=== PATIENT | male | born 1950 | race Caucasian/White ===

== ENCOUNTER → 2024-04-11 14:34 | Outpatient (CLI) | payer MEDICARE, SELFPAY ==
--- NOTE | 2024-04-11 14:36 | DI.RAD.S_ITS ---
PROCEDURE: XR KNEE RT 3V INDICATIONS: rt knee pain TECHNIQUE: 3 views of the knee were acquired. COMPARISON: None. FINDINGS: Bones: No fractures or dislocations. No suspicious bony lesions. Tricompartmental joint space narrowing with associated osteophytosis. Soft tissues: No joint effusion. No suspicious soft tissue calcifications. IMPRESSION: Xdcz-wh-hwsufbpu tricompartmental osteoarthritis. Kellgren-Ha Grade 2. Dictated by: Clinton Larkin M.D. on 04/11/2024 at 16:58 Approved by: Clinton Larkin M.D. on 04/11/2024 at 16:58
== END ==
PROVIDERS: PCP Nurse Practitioner Family; Referring Provider Nurse Practitioner Family; Visit Provider Nurse Practitioner Family
DX: M17.11 Unilateral primary osteoarthritis, right knee (principal); M25.561 Pain in right knee
CPT/HCPCS: 73562

== ENCOUNTER → 2024-04-24 11:43 | Outpatient (CLI) | payer MEDICARE, SELFPAY ==
--- NOTE | 2024-04-24 11:44 | DI.RAD.S_ITS ---
PROCEDURE: XR HAND RT MIN 3V INDICATIONS: possible OA of thumb DIP joint swelling TECHNIQUE: 3 views of the hand(s) acquired. COMPARISON: None. FINDINGS: No acute fracture or dislocation. Diffuse osseous demineralization. Mild 1st DIP joint osteoarthritis. No osseous erosions. IMPRESSION: Mild 1st DIP joint osteoarthritis. Dictated by: Rex Matias M.D. on 04/24/2024 at 19:58 Approved by: Rex Matias M.D. on 04/24/2024 at 19:58
== END ==
LOC: RAD 11:44
PROVIDERS: Family Provider Nurse Practitioner Family; PCP Nurse Practitioner Family; Referring Provider Nurse Practitioner Family; Visit Provider Nurse Practitioner Family
DX: M19.041 Primary osteoarthritis, right hand (principal); M79.641 Pain in right hand
CPT/HCPCS: 73130

== ENCOUNTER 2024-06-17 11:30 | Outpatient (RCR) | payer MEDICARE, SELFPAY ==
--- NOTE | 2024-05-20 16:11 | PT.OIE ---
Current Diagnoses Patellofemoral disorders, right knee (05/20/24) Pain in right knee (05/20/24) Past Medical History (Last Updated 04/21/24 @ 19:51 by Mojgan Miguel) Anemia (~2015) Anxiety (~2011) Colon polyps (~2016) Depression (~2005) Eczema (~2015) Headache (~1963) Hearing decreased History of elevated PSA (~2002) History of prostate cancer (~2006) History of urinary incontinence (~2021) Low testosterone Osteoporosis (~2011) Vertigo (~2020) Past Surgical History (Last Updated 04/21/24 @ 19:51 by Mojgan Miguel) Anesthesia History of prostatectomy (~05/2007) History of shoulder surgery (~10/2002) Visit Care Team Role Provider Type MARGOT Parker Attending Provider Advanced Dance Entertainer Family Provider Primary Care Provider Referring Provider Specialty: Family Practice Address: [address] [place] [address], [id number] Phone: Fax: Email: [email or web address] Physical Therapy Initial Evaluation PT-OP-A Visit Information Start: 05/20/24 15:31 Freq: Status: Active Protocol: Document 05/20/24 11:30 DCW (Rec: 05/20/24 15:53 DCW [id number]) Out-Patient Physical Therapy Visit Information Visit Information Visit Type Initial Evaluation Visit Start Time 11:30 Visit Stop Time 12:15 Visit Number 1 Number of SURVEY RESEARCH ANALYST Visits 0 Evaluation Information Evaluation Date 05/20/24 PT-OP-B Current Condition Start: 05/20/24 15:31 Freq: Status: Active Protocol: Document 05/20/24 11:30 DCW (Rec: 05/20/24 15:53 [facility] [id number]) Current Condition History of Current Condition Onset Date 3-4 month history Current Complaints R knee pain History of Current Condition Pt is a 73 year old male presenting with a 3-4 month history of right knee pain. Pt reports an x-ray showed some qicz-ba-ozbi osteoarthritis. Pt reports pain was fairly sudden onset getting out of bed one day. Notes increased discomfort when shifting weight-bearing onto right leg. Additionally experiences frequent spasming in his hips. 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 Does admit that he needs his arms to assist him gettiing up from kneeling, but kneeling doesn't actually cause any increased pain. Prior Treatments and Tests R Knee X-ray: IMPRESSION: Xsns-pa-filhkvzk tricompartmental osteoarthritis. Kellgren- Ha Grade 2. per Clinton Larkin M.D. on 04/11/2024 PT-OP-C Subjective Start: 05/20/24 15:31 Freq: Status: Active Protocol: Document 05/20/24 11:30 DCW (Rec: 05/20/24 15:53 DCW [id number]) Patient Questionnaires Lower Extremity Functional Scale LEFS Score 50/80 = 62.5% LEFS Impairment 20 to 39% Impaired (Score 48- 62) PT-OP-F Manual Assessment Start: 05/20/24 15:31 Freq: Status: Active Protocol: Document 05/20/24 11:30 DCW (Rec: 05/20/24 15:53 DCW [id number]) Manual Assessments Soft Tissue Assessment Soft Tissue Mobility Assessment Decreased right VMO contraction, mild tenderness in lateral gastroc head PT-OP-K Range of Motion Start: 05/20/24 15:31 Freq: Status: Active Protocol: Document 05/20/24 11:30 DCW (Rec: 05/20/24 15:53 DCW [id number]) Knee Goniometric Range of Motion Knee Right Knee ROM WFL Yes Patient Position Supine Flexion Active (degrees) 135 Extension Active (degrees) 0 Left Knee ROM WFL Yes Patient Position Supine Flexion Active (degrees) 135 Extension Active (degrees) 0 PT-OP-L Special Tests Start: 05/20/24 15:31 Freq: Status: Active Protocol: Document 05/20/24 11:30 DCW (Rec: 05/20/24 15:53 DCW [id number]) Special Tests Knee Special Tests Varus- 25 Degrees Test Results Negative Valgus- 25 Degrees Test Results Negative Posterior Draw Test Results Negative Patellar Grind Test Test Results Strongly Positive R Patella Tap Test Results Negative Maryann Test Test Results Negative Ortiz Chondromalacia Test Results Positive R Anterior Draw Test Results Negative PT-OP-M Strength Start: 05/20/24 15:31 Freq: Status: Active Protocol: Document 05/20/24 11:30 DCW (Rec: 05/20/24 15:53 DCW [id number]) Hip Strength Hip Manual Muscle Testing Right Flexion (L2) 4+ Good+ Abduction 4 Good Adduction 4 Good Left Flexion (L2) 5 Normal Abduction 4+ Good+ Adduction 4+ Good+ Knee Strength Knee Manual Muscle Testing Right Flexion (S2) 5 Normal Extension (L3) 4+ Good+ Left Flexion (S2) 5 Normal Extension (L3) 5 Normal PT-OP-Q Treatments Start: 05/20/24 15:31 Freq: Status: Active Protocol: Document 05/20/24 11:30 DCW (Rec: 05/20/24 15:53 DCW [id number]) Therapeutic Exercises Supine Exercises Bridging Supine Exercise Name Bridging /c Adductor ball squeeze Side bilateral SLR Supine Exercise Name SLR /c ER Side right Sidelying Exercises Hip Adduction Sidelying Exercise Name Adduction SLR Side right Other Exercises Wall Squat Other Exercise Name Wall Squat /c Adductor ball squeeze PT-OP-T Assessment and Plan Start: 05/20/24 15:31 Freq: Status: Active Protocol: Document 05/20/24 11:30 DCW (Rec: 05/20/24 16:11 DCW [id number]) Physical Therapy Assessment Rehab Potential Rehabilitation Potential Good Evaluation Complexity Number of Personal Factors/Comorbidities 3 or More Number of Body Systems Impaired 4 or More Clinical Presentation at Evaluation Unstable Impairments Impairments Activity Tolerance,Functional Activities,Functional Mobility ,Pain,Strength,Tone Other Concerns Barriers to Rehabilitation Hx of muscle spasm in hips, Hx L clavioectomy, Hx prostate Ca Goals Two Impairment Pt unable to get up from kneeling without UE assistance Detention Goal (LTG) Pt to demonstrate ability to get off the floor without pulling himself up using his hands in order to show improvement in LE/quad strength LTG Duration 07/18/24 One Impairment Pt does not have an appropriate home exercise program Short Term Goal (STG) Pt to be independent and complaint with an appropriate HEP STG Duration 06/20/24 Assessment Summary Assessment Pt presents with signs and symptoms consistent with referring diagnosis. Testing suggestive of patellofemoral dysfunction, notably strongly positive patella grind testing . Further testing indicates decreased function of right VMO, noticeably decreased muscle mass compared to left side. Pt will likely benefit from skilled therapeutic intervention focusing on VMO and quad strengthening, joint mobility, STM, and stretching/ flexibility. Physical Therapy Plan Frequency and Duration Frequency of Treatment 2x/Week Plan of Care Start Date 05/20/24 Plan of Care End Date 07/18/24 Therapeutic Interventions Therapeutic Interventions Home Exercise Program,Joint Mobilizations,Manual Therapy, Neuromuscular Re-education, Patient/Caregiver Education, Self-Care/Home Management,Soft Tissue Mobilization, Therapeutic Activities, Therapeutic Exercises Modalities Cold Pack/Ice Massage,Hot Packs Next Visit Focus/Plan Next Note Type Treatment Note Next Visit Plan VMO/quad strengthening, patellar mobs
--- NOTE | 2024-05-20 16:14 | PT.OPPOC ---
Physical, Occupational & Speech Therapy At [facility] Current Diagnoses Patellofemoral disorders, right knee (05/20/24) Pain in right knee (05/20/24) Visit Care Team Role Provider Type Lou Ramirez PSYCHIATRIC SECRETARY-BC Attending Provider Advanced Scaffold Worker Family Provider Primary Care Provider Referring Provider Specialty: Family Practice Address: [address] [place] [address], [address] Phone: Fax: Email: [email or web address] Plan Of Care PT-OP-B Current Condition Start: 05/20/24 15:31 Freq: Status: Active Protocol: Document 05/20/24 11:30 DCW (Rec: 05/20/24 15:53 DCW [id number]) Current Condition History of Current Condition Onset Date 3-4 month history Current Complaints R knee pain History of Current Condition Pt is a 73 year old male presenting with a 3-4 month history of right knee pain. Pt reports an x-ray showed some qdnt-rv-culf osteoarthritis. Pt reports pain was fairly sudden onset getting out of bed one day. Notes increased discomfort when shifting weightbearing onto right leg. Additionally experiences frequent spasming in his hips. 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 Does admit that he needs his arms to assist him gettiing up from kneeling, but kneeling doesn't actually cause any increased pain. Prior Treatments and Tests R Knee X-ray: IMPRESSION: Luoi-gi-kwwhhpop tricompartmental osteoarthritis. Kellgren- Ha Grade 2. per Clinton Larkin M.D. on 04/11/2024 PT-OP-T Assessment and Plan Start: 05/20/24 15:31 Freq: Status: Active Protocol: Document 05/20/24 11:30 DCW (Rec: 05/20/24 16:11 DCW [id number]) Physical Therapy Assessment Rehab Potential Rehabilitation Potential Good Evaluation Complexity Number of Personal Factors/Comorbidities 3 or More Number of Body Systems Impaired 4 or More Clinical Presentation at Evaluation Unstable Impairments Impairments Activity Tolerance,Functional Activities,Functional Mobility ,Pain,Strength,Tone Other Concerns Barriers to Rehabilitation Hx of muscle spasm in hips, Hx L clavioectomy, Hx prostate Ca Goals Two Impairment Pt unable to get up from kneeling without UE assistance Press Feeder Broomcorn Goal (LTG) Pt to demonstrate ability to get off the floor without pulling himself up using his hands in order to show improvement in LE/quad strength LTG Duration 07/18/24 One Impairment Pt does not have an appropriate home exercise program Short Term Goal (STG) Pt to be independent and complaint with an appropriate HEP STG Duration 06/20/24 Assessment Summary Assessment Pt presents with signs and symptoms consistent with referring diagnosis. Testing suggestive of patellofemoral dysfunction, notably strongly positive patella grind testing . Further testing indicates decreased function of right VMO, noticeably decreased muscle mass compared to left side. Pt will likely benefit from skilled therapeutic intervention focusing on VMO and quad strengthening, joint mobility, STM, and stretching/ flexibility. Physical Therapy Plan Frequency and Duration Frequency of Treatment 2x/Week Plan of Care Start Date 05/20/24 Plan of Care End Date 07/18/24 Therapeutic Interventions Therapeutic Interventions Home Exercise Program,Joint Mobilizations,Manual Therapy, Neuromuscular Re-education, Patient/Caregiver Education, Self-Care/Home Management,Soft Tissue Mobilization, Therapeutic Activities, Therapeutic Exercises Modalities Cold Pack/Ice Massage,Hot Packs Next Visit Focus/Plan Next Note Type Treatment Note Next Visit Plan VMO/quad strengthening, patellar mobs Plan of Care Dates Plan of Care Start Date 05/20/24 Plan of Care End Date 07/18/24 Electronically Signed by: Davian Sigala, PT 05/20/24 1569 If you are in agreement with this Plan of Care, please return a signed and dated copy. I have reviewed this Plan of Care and certify that the skilled therapy services above are required to meet the patient?s needs. Physician Signature Date Printed Name and Credentials Clinical Instructor Signature Printed Name and Credentials
--- NOTE | 2024-05-23 12:14 | PT.OTN ---
Current Diagnoses Patellofemoral disorders, right knee (05/23/24) Pain in right knee (05/23/24) Physical Therapy Treatment Note PT-OP-A Visit Information Start: 05/20/24 15:31 Freq: Status: Active Protocol: Document 05/23/24 11:30 DCW (Rec: 05/23/24 12:14 DCW [id number]) Out-Patient Physical Therapy Visit Information Visit Information Visit Type Treatment Note Visit Start Time 11:30 Visit Stop Time 12:15 Visit Number 2 Number of POCKET BUILDER Visits 0 Evaluation Information Evaluation Date 05/20/24 PT-OP-B Current Condition Start: 05/20/24 15:31 Freq: Status: Active Protocol: Document 05/20/24 11:30 DCW (Rec: 05/20/24 15:53 DCW [id number]) Current Condition History of Current Condition Onset Date 3-4 month history Current Complaints R knee pain History of Current Condition Pt is a 73 year old male presenting with a 3-4 month history of right knee pain. Pt reports an x-ray showed some dnqg-qi-rmvj osteoarthritis. Pt reports pain was fairly sudden onset getting out of bed one day. Notes increased discomfort when shifting weightbearing onto right leg. Additionally experiences frequent spasming in his hips. 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 Does admit that he needs his arms to assist him gettiing up from kneeling, but kneeling doesn't actually cause any increased pain. Prior Treatments and Tests R Knee X-ray: IMPRESSION: Xewf-fc-kklzwdui tricompartmental osteoarthritis. Kellgren- Ha Grade 2. per Clinton Larkin M.D. on 04/11/2024 PT-OP-C Subjective Start: 05/20/24 15:31 Freq: Status: Active Protocol: Document 05/23/24 11:30 DCW (Rec: 05/23/24 12:14 TNW [id number]) OP-PT Subjective Patient Comments Patient Comments At this time, I'm trying to find a comfortable place to do my exercises. Right now I'm just using my bed. PT-OP-F Manual Assessment Start: 05/20/24 15:31 Freq: Status: Active Protocol: Document 05/20/24 11:30 DCW (Rec: 05/20/24 15:53 DCW [id number]) Manual Assessments Soft Tissue Assessment Soft Tissue Mobility Assessment Decreased right VMO contraction, mild tenderness in lateral gastroc head PT-OP-K Range of Motion Start: 05/20/24 15:31 Freq: Status: Active Protocol: Document 05/20/24 11:30 DCW (Rec: 05/20/24 15:53 DCW [id number]) Knee Goniometric Range of Motion Knee Right Knee ROM WFL Yes Patient Position Supine Flexion Active (degrees) 135 Extension Active (degrees) 0 Left Knee ROM WFL Yes Patient Position Supine Flexion Active (degrees) 135 Extension Active (degrees) 0 PT-OP-L Special Tests Start: 05/20/24 15:31 Freq: Status: Active Protocol: Document 05/20/24 11:30 DCW (Rec: 05/20/24 15:53 DCW [id number]) Special Tests Knee Special Tests Varus- 25 Degrees Test Results Negative Valgus- 25 Degrees Test Results Negative Posterior Draw Test Results Negative Patellar Grind Test Test Results Strongly Positive R Patella Tap Test Results Negative Maryann Test Test Results Negative Ortiz Chondromalacia Test Results Positive R Anterior Draw Test Results Negative PT-OP-M Strength Start: 05/20/24 15:31 Freq: Status: Active Protocol: Document 05/20/24 11:30 DCW (Rec: 05/20/24 15:53 DCW [id number]) Hip Strength Hip Manual Muscle Testing Right Flexion (L2) 4+ Good+ Abduction 4 Good Adduction 4 Good Left Flexion (L2) 5 Normal Abduction 4+ Good+ Adduction 4+ Good+ Knee Strength Knee Manual Muscle Testing Right Flexion (S2) 5 Normal Extension (L3) 4+ Good+ Left Flexion (S2) 5 Normal Extension (L3) 5 Normal PT-OP-Q Treatments Start: 05/20/24 15:31 Freq: Status: Active Protocol: Document 05/23/24 11:30 DCW (Rec: 05/23/24 12:14 DCW [id number]) Gym Equipment Shuttle Recovery Unilateral Squats Resistance 50# Shuttle Recovery Platform Stable Reps/Time x15 Bilateral Squats Details Adductor ball squeeze Resistance 87# Shuttle Recovery Platform Stable Reps/Time x15 Shuttle Balance Red Details WBOS, Staggered Therapeutic Exercises Standing Exercises TKE Standing Exercise Name TKE Side bilateral Resistance Lv 3 Other Exercises Resisted Ambulation Other Exercise Name Side-stepping, Fwd/Bkwd Resistance Blue loop BOSU Lunge Other Exercise Name BOSU Lunge Side bilateral Resistance Blue BOSU PT-OP-T Assessment and Plan Start: 05/20/24 15:31 Freq: Status: Active Protocol: Document 05/23/24 11:30 DCW (Rec: 05/23/24 12:14 DCW [id number]) Physical Therapy Assessment Impairments Impairments Activity Tolerance,Functional Activities,Functional Mobility ,Pain,Strength,Tone Goals Two Impairment Pt unable to get up from kneeling without UE assistance Chcf Goal (LTG) Pt to demonstrate ability to get off the floor without pulling himself up using his hands in order to show improvement in LE/quad strength LTG Duration 07/18/24 One Impairment Pt does not have an appropriate home exercise program Short Term Goal (STG) Pt to be independent and complaint with an appropriate HEP STG Duration 06/20/24 Assessment Summary Assessment Pt quite fatigued by end of session, but put forth very good effort throughout TherEx today. Good response to treatment today. Motivated to continue with HEP. Physical Therapy Plan Frequency and Duration Frequency of Treatment 2x/Week Plan of Care Start Date 05/20/24 Plan of Care End Date 07/18/24 Therapeutic Interventions Therapeutic Interventions Home Exercise Program,Joint Mobilizations,Manual Therapy, Neuromuscular Re-education, Patient/Caregiver Education, Self-Care/Home Management,Soft Tissue Mobilization, Therapeutic Activities, Therapeutic Exercises Modalities Cold Pack/Ice Massage,Hot Packs Next Visit Focus/Plan Next Note Type Treatment Note Next Visit Plan VMO/quad strengthening, patellar mobs
--- NOTE | 2024-06-11 16:57 | PT.OTN ---
Current Diagnoses Patellofemoral disorders, right knee (06/11/24) Pain in right knee (06/11/24) Physical Therapy Treatment Note PT-OP-A Visit Information Start: 05/20/24 15:31 Freq: Status: Active Protocol: Document 06/11/24 16:15 DCW (Rec: 06/11/24 16:57 DCW [id number]) Out-Patient Physical Therapy Visit Information Visit Information Visit Type Treatment Note Visit Start Time 16:15 Visit Stop Time 17:00 Visit Number 3 Number of MACHINE STRIPER Visits 0 Evaluation Information Evaluation Date 05/20/24 PT-OP-B Current Condition Start: 05/20/24 15:31 Freq: Status: Active Protocol: Document 05/20/24 11:30 DCW (Rec: 05/20/24 15:53 DCW [id number]) Current Condition History of Current Condition Onset Date 3-4 month history Current Complaints R knee pain History of Current Condition Pt is a 73 year old male presenting with a 3-4 month history of right knee pain. Pt reports an x-ray showed some bcvz-so-hion osteoarthritis. Pt reports pain was fairly sudden onset getting out of bed one day. Notes increased discomfort when shifting weightbearing onto right leg. Additionally experiences frequent spasming in his hips. 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 Does admit that he needs his arms to assist him gettiing up from kneeling, but kneeling doesn't actually cause any increased pain. Prior Treatments and Tests R Knee X-ray: IMPRESSION: Vezb-wk-nkjrheox tricompartmental osteoarthritis. Kellgren- Ha Grade 2. per Clinton Larkin M.D. on 04/11/2024 PT-OP-C Subjective Start: 05/20/24 15:31 Freq: Status: Active Protocol: Document 06/11/24 16:15 DCW (Rec: 06/11/24 16:57 DCW [id number]) OP-PT Subjective Patient Comments Patient Comments Pt reports he was sick for a week, and then recovering for a week, feels pretty weak and lost 5 pounds. PT-OP-F Manual Assessment Start: 05/20/24 15:31 Freq: Status: Active Protocol: Document 05/20/24 11:30 DCW (Rec: 05/20/24 15:53 DCW [id number]) Manual Assessments Soft Tissue Assessment Soft Tissue Mobility Assessment Decreased right VMO contraction, mild tenderness in lateral gastroc head PT-OP-K Range of Motion Start: 05/20/24 15:31 Freq: Status: Active Protocol: Document 05/20/24 11:30 DCW (Rec: 05/20/24 15:53 DCW [id number]) Knee Goniometric Range of Motion Knee Right Knee ROM WFL Yes Patient Position Supine Flexion Active (degrees) 135 Extension Active (degrees) 0 Left Knee ROM WFL Yes Patient Position Supine Flexion Active (degrees) 135 Extension Active (degrees) 0 PT-OP-L Special Tests Start: 05/20/24 15:31 Freq: Status: Active Protocol: Document 05/20/24 11:30 DCW (Rec: 05/20/24 15:53 DCW [id number]) Special Tests Knee Special Tests Varus- 25 Degrees Test Results Negative Valgus- 25 Degrees Test Results Negative Posterior Draw Test Results Negative Patellar Grind Test Test Results Strongly Positive R Patella Tap Test Results Negative Maryann Test Test Results Negative Ortiz Chondromalacia Test Results Positive R Anterior Draw Test Results Negative PT-OP-M Strength Start: 05/20/24 15:31 Freq: Status: Active Protocol: Document 05/20/24 11:30 DCW (Rec: 05/20/24 15:53 DCW [id number]) Hip Strength Hip Manual Muscle Testing Right Flexion (L2) 4+ Good+ Abduction 4 Good Adduction 4 Good Left Flexion (L2) 5 Normal Abduction 4+ Good+ Adduction 4+ Good+ Knee Strength Knee Manual Muscle Testing Right Flexion (S2) 5 Normal Extension (L3) 4+ Good+ Left Flexion (S2) 5 Normal Extension (L3) 5 Normal PT-OP-Q Treatments Start: 05/20/24 15:31 Freq: Status: Active Protocol: Document 06/11/24 16:15 DCW (Rec: 06/11/24 16:57 DCW [id number]) Gym Equipment Shuttle Recovery Unilateral Squats Resistance 50# Shuttle Recovery Platform Stable Reps/Time x15 Bilateral Squats Details Adductor ball squeeze Resistance 100# Shuttle Recovery Platform Stable Reps/Time x15 Shuttle Balance Red Details WBOS, Staggered Therapeutic Exercises Other Exercises Step-ups Other Exercise Name Foam step-ups with exaggerated march Side bilateral Equipment Used AirEx Sliders Other Exercise Name Sliders - Abduction Side bilateral Equipment Used Furniture Slider Resisted Ambulation Other Exercise Name Side-stepping, Fwd/Bkwd Resistance Blue loop BOSU Lunge Other Exercise Name BOSU Lunge Side bilateral Resistance Blue BOSU PT-OP-T Assessment and Plan Start: 05/20/24 15:31 Freq: Status: Active Protocol: Document 06/11/24 16:15 DCW (Rec: 06/11/24 16:57 DCW [id number]) Physical Therapy Assessment Impairments Impairments Activity Tolerance,Functional Activities,Functional Mobility ,Pain,Strength,Tone Goals Two Impairment Pt unable to get up from kneeling without UE assistance Metal Shaping Machine Operator Goal (LTG) Pt to demonstrate ability to get off the floor without pulling himself up using his hands in order to show improvement in LE/quad strength LTG Duration 07/18/24 One Impairment Pt does not have an appropriate home exercise program Short Term Goal (STG) Pt to be independent and complaint with an appropriate HEP STG Duration 06/20/24 Assessment Summary Assessment Pt continues to fatigue, especially today following recent illness, but doing very well with knee strengthening and improving functional mobility. Physical Therapy Plan Frequency and Duration Frequency of Treatment 2x/Week Plan of Care Start Date 05/20/24 Plan of Care End Date 07/18/24 Therapeutic Interventions Therapeutic Interventions Home Exercise Program,Joint Mobilizations,Manual Therapy, Neuromuscular Re-education, Patient/Caregiver Education, Self-Care/Home Management,Soft Tissue Mobilization, Therapeutic Activities, Therapeutic Exercises Modalities Cold Pack/Ice Massage,Hot Packs Next Visit Focus/Plan Next Note Type Treatment Note Next Visit Plan VMO/quad strengthening, patellar mobs
--- NOTE | 2024-06-13 10:04 | PT.OTN ---
Current Diagnoses Patellofemoral disorders, right knee (06/13/24) Pain in right knee (06/13/24) Physical Therapy Treatment Note PT-OP-A Visit Information Start: 05/20/24 15:31 Freq: Status: Active Protocol: Document 06/13/24 08:07 AB (Rec: 06/13/24 10:01 AB [id number]) Out-Patient Physical Therapy Visit Information Visit Information Visit Type Treatment Note Visit Start Time 09:05 Visit Stop Time 09:50 Visit Number 4 Number of SPRING TESTER Visits 1 Evaluation Information Evaluation Date 05/20/24 PT-OP-B Current Condition Start: 05/20/24 15:31 Freq: Status: Active Protocol: Document 05/20/24 11:30 DCW (Rec: 05/20/24 15:53 DCW [id number]) Current Condition History of Current Condition Onset Date 3-4 month history Current Complaints R knee pain History of Current Condition Pt is a 73 year old male presenting with a 3-4 month history of right knee pain. Pt reports an x-ray showed some flrg-hc-[id number] osteoarthritis. Pt reports pain was fairly sudden onset getting out of bed one day. Notes increased discomfort when shifting weightbearing onto right leg. Additionally experiences frequent spasming in his hips. 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 Does admit that he needs his arms to assist him gettiing up from kneeling, but kneeling doesn't actually cause any increased pain. Prior Treatments and Tests R Knee X-ray: IMPRESSION: Gkur-sw-ifjvaiho tricompartmental osteoarthritis. Kellgren- Ha Grade 2. per Clinton Larkin M.D. on 04/11/2024 PT-OP-C Subjective Start: 05/20/24 15:31 Freq: Status: Active Protocol: Document 06/13/24 08:07 AB (Rec: 06/13/24 10:01 AB [id number]) OP-PT Subjective Patient Comments Patient Comments Patient report the knee is better. Patient reports he gets a click when he gets up from the recliner. PT-OP-F Manual Assessment Start: 05/20/24 15:31 Freq: Status: Active Protocol: Document 05/20/24 11:30 DCW (Rec: 05/20/24 15:53 DCW [id number]) Manual Assessments Soft Tissue Assessment Soft Tissue Mobility Assessment Decreased right VMO contraction, mild tenderness in lateral gastroc head PT-OP-K Range of Motion Start: 05/20/24 15:31 Freq: Status: Active Protocol: Document 05/20/24 11:30 DCW (Rec: 05/20/24 15:53 DCW [id number]) Knee Goniometric Range of Motion Knee Right Knee ROM WFL Yes Patient Position Supine Flexion Active (degrees) 135 Extension Active (degrees) 0 Left Knee ROM WFL Yes Patient Position Supine Flexion Active (degrees) 135 Extension Active (degrees) 0 PT-OP-L Special Tests Start: 05/20/24 15:31 Freq: Status: Active Protocol: Document 05/20/24 11:30 DCW (Rec: 05/20/24 15:53 DCW [id number]) Special Tests Knee Special Tests Varus- 25 Degrees Test Results Negative Valgus- 25 Degrees Test Results Negative Posterior Draw Test Results Negative Patellar Grind Test Test Results Strongly Positive R Patella Tap Test Results Negative Maryann Test Test Results Negative Ortiz Chondromalacia Test Results Positive R Anterior Draw Test Results Negative PT-OP-M Strength Start: 05/20/24 15:31 Freq: Status: Active Protocol: Document 05/20/24 11:30 DCW (Rec: 05/20/24 15:53 DCW [id number]) Hip Strength Hip Manual Muscle Testing Right Flexion (L2) 4+ Good+ Abduction 4 Good Adduction 4 Good Left Flexion (L2) 5 Normal Abduction 4+ Good+ Adduction 4+ Good+ Knee Strength Knee Manual Muscle Testing Right Flexion (S2) 5 Normal Extension (L3) 4+ Good+ Left Flexion (S2) 5 Normal Extension (L3) 5 Normal PT-OP-Q Treatments Start: 05/20/24 15:31 Freq: Status: Active Protocol: Document 06/13/24 08:07 AB (Rec: 06/13/24 10:01 AB [id number]) Therapeutic Exercises Supine Exercises hamstring stretch from hooklying Side right Reps/Minutes 60 sec X 2 Comments Prior to sets of SLR Bridging Supine Exercise Name Bridging /c Adductor ball squeeze Side bilateral SLR Supine Exercise Name SLR /c ER Side right Reps/Minutes X15 Comments verbal cues Sitting Exercises seatedhip abd with band Sitting Exercise Name HEP Side bilateral Resistance [place] level 3 band Reps/Minutes one min X 1 Comments for glute med activation SLS R inc from 1-2 sec to 7 sec post activation Standing Exercises TKE Standing Exercise Name TKE Side bilateral Resistance Lv 3 Reps/Minutes X10 Comments verbal cues Other Exercises Step-ups Other Exercise Name 6 inch step Side bilateral Reps/Minutes X10 each UE with UE use Comments reports no inc pain Therapeutic Activity Therapeutic Activity sit to stand Reps/Minutes X6 Comments Patient ed mech of sit to stand, and self tactile cues for hip hinge. Manual Therapy Treatment Consent Patient gave verbal consent for manual Yes treatment Soft Tissue Mobilization R knee Body Location superficial to joint and into quad, mod to hamstring Mobilization Type Cross-Friction,Myofascial Release,Rolling Body Position Hooklying Joint Mobilizations Patellar mobilizatons Joint Inf, sup, med, lat, CW and CCW R knee Body Position Supine Reps/Duration X8 each Taping right knee Treatment Focus improve trackin medially, and for pain Type of Tape Kinesio tape I strips distal to lat/med super and horizontal lat to med pat Skin Inspection prominant vein over patella Comments Pt ed to remove tape in 3-5 days or immediately if skin irritation occurs PT-OP-T Assessment and Plan Start: 05/20/24 15:31 Freq: Status: Active Protocol: Document 06/13/24 08:07 AB (Rec: 06/13/24 10:01 AB [id number]) Physical Therapy Assessment Goals Two Impairment Pt unable to get up from kneeling without UE assistance Penitentiary Goal (LTG) Pt to demonstrate ability to get off the floor without pulling himself up using his hands in order to show improvement in LE/quad strength LTG Duration 07/18/24 One Impairment Pt does not have an appropriate home exercise program Short Term Goal (STG) Pt to be independent and complaint with an appropriate HEP STG Duration 06/20/24 Assessment Summary Assessment Patient reports no pain with sit to stand with UE use post taping, but no trial was performed pre taping. Patient ed to assess at home out of recliner. Increased SLS R LE and dec ipsilatera trunk sidebend with SLS post glut med activation. Physical Therapy Plan Frequency and Duration Frequency of Treatment 2x/Week Plan of Care Start Date 05/20/24 Plan of Care End Date 07/18/24 Therapeutic Interventions Therapeutic Interventions Home Exercise Program,Joint Mobilizations,Manual Therapy, Neuromuscular Re-education, Patient/Caregiver Education, Self-Care/Home Management,Soft Tissue Mobilization, Therapeutic Activities, Therapeutic Exercises Next Visit Focus/Plan Next Note Type Treatment Note Next Visit Plan VMO/quad strengthening, patellar mobs
--- NOTE | 2024-06-17 12:24 | PT.OTN ---
Current Diagnoses Patellofemoral disorders, right knee (06/17/24) Pain in right knee (06/17/24) Physical Therapy Treatment Note PT-OP-A Visit Information Start: 05/20/24 15:31 Freq: Status: Active Protocol: Document 06/17/24 11:34 AB (Rec: 06/17/24 12:24 AB [id number]) Out-Patient Physical Therapy Visit Information Visit Information Visit Type Treatment Note Visit Start Time 11:35 Visit Stop Time 12:19 Visit Number 5 Number of SUPERVISOR VAT HOUSE Visits 2 PT-OP-B Current Condition Start: 05/20/24 15:31 Freq: Status: Active Protocol: Document 05/20/24 11:30 DCW (Rec: 05/20/24 15:53 DCW [id number]) Current Condition History of Current Condition Onset Date 3-4 month history Current Complaints R knee pain History of Current Condition Pt is a 73 year old male presenting with a 3-4 month history of right knee pain. Pt reports an x-ray showed some plwe-lq-[id number] osteoarthritis. Pt reports pain was fairly sudden onset getting out of bed one day. Notes increased discomfort when shifting weightbearing onto right leg. Additionally experiences frequent spasming in his hips. 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 Does admit that he needs his arms to assist him gettiing up from kneeling, but kneeling doesn't actually cause any increased pain. Prior Treatments and Tests R Knee X-ray: IMPRESSION: Bkeu-se-kwructai tricompartmental osteoarthritis. Kellgren- Ha Grade 2. per Clinton Larkin M.D. on 04/11/2024 PT-OP-C Subjective Start: 05/20/24 15:31 Freq: Status: Active Protocol: Document 06/17/24 11:34 AB (Rec: 06/17/24 12:24 AB [id number]) OP-PT Subjective Patient Comments Patient Comments Patient reports the pain comes and goes. Patient reports the tape works, had no pain with standing up from recliner with tape on. R great toe 2 cm from wall prior to heel off floor, PROM DF body over ankle mvt. PT-OP-F Manual Assessment Start: 05/20/24 15:31 Freq: Status: Active Protocol: Document 05/20/24 11:30 DCW (Rec: 05/20/24 15:53 DCW [id number]) Manual Assessments Soft Tissue Assessment Soft Tissue Mobility Assessment Decreased right VMO contraction, mild tenderness in lateral gastroc head PT-OP-K Range of Motion Start: 05/20/24 15:31 Freq: Status: Active Protocol: Document 05/20/24 11:30 DCW (Rec: 05/20/24 15:53 DCW [id number]) Knee Goniometric Range of Motion Knee Right Knee ROM WFL Yes Patient Position Supine Flexion Active (degrees) 135 Extension Active (degrees) 0 Left Knee ROM WFL Yes Patient Position Supine Flexion Active (degrees) 135 Extension Active (degrees) 0 PT-OP-L Special Tests Start: 05/20/24 15:31 Freq: Status: Active Protocol: Document 05/20/24 11:30 DCW (Rec: 05/20/24 15:53 DCW [id number]) Special Tests Knee Special Tests Varus- 25 Degrees Test Results Negative Valgus- 25 Degrees Test Results Negative Posterior Draw Test Results Negative Patellar Grind Test Test Results Strongly Positive R Patella Tap Test Results Negative Maryann Test Test Results Negative Ortiz Chondromalacia Test Results Positive R Anterior Draw Test Results Negative PT-OP-M Strength Start: 05/20/24 15:31 Freq: Status: Active Protocol: Document 05/20/24 11:30 DCW (Rec: 05/20/24 15:53 DCW [id number]) Hip Strength Hip Manual Muscle Testing Right Flexion (L2) 4+ Good+ Abduction 4 Good Adduction 4 Good Left Flexion (L2) 5 Normal Abduction 4+ Good+ Adduction 4+ Good+ Knee Strength Knee Manual Muscle Testing Right Flexion (S2) 5 Normal Extension (L3) 4+ Good+ Left Flexion (S2) 5 Normal Extension (L3) 5 Normal PT-OP-Q Treatments Start: 05/20/24 15:31 Freq: Status: Active Protocol: Document 06/17/24 11:34 AB (Rec: 06/17/24 12:24 AB [id number]) Therapeutic Exercises Supine Exercises hamstring stretch from hooklying Side right Reps/Minutes 60 sec X 2 Comments Prior to sets of SLR Bridging Supine Exercise Name Bridging /c Adductor ball squeeze Side bilateral Reps/Minutes X15 Comments monitored for pain SLR Supine Exercise Name SLR /c ER Side right Reps/Minutes X15 Comments verbal cues Sitting Exercises seatedhip abd with band Sitting Exercise Name HEP Side bilateral Resistance [place] level 5 band Reps/Minutes one min X 1 Comments for glute med activation SLS R inc from 1-2 sec to 7 sec post activation Standing Exercises Calf stretches Standing Exercise Name standing at wall Gastroc and Soleus Equipment Used HEP Reps/Minutes 60 sec each Comments verbal and visual cues sit to stand with band Standing Exercise Name from slightly raised seat height then webbed chair Side bilateral Resistance level 4 band tied above knees Equipment Used HEP Reps/Minutes X10 from mat Comments Increased verbal cues to avoid toeing out R LE Manual Therapy Treatment Consent Patient gave verbal consent for manual Yes treatment Soft Tissue Mobilization R knee Body Location superficial to med/ lat joint and into quad, mod to hamstring Mobilization Type Cross-Friction,Myofascial Release,Rolling Body Position Hooklying Joint Mobilizations Patellar mobilizatons Joint Inf, sup, med, lat, CW and CCW R knee Body Position Supine Reps/Duration X8 each Taping right knee Treatment Focus improve trackin medially, and for pain Type of Tape Kinesio tape I strips distal to lat/med super and horizontal lat to med pat Skin Inspection prominant vein over patella Comments Pt ed to remove tape in 3-5 days or immediately if skin irritation occurs PT-OP-T Assessment and Plan Start: 05/20/24 15:31 Freq: Status: Active Protocol: Document 06/17/24 11:34 AB (Rec: 06/17/24 12:24 AB [id number]) Physical Therapy Assessment Goals Two Impairment Pt unable to get up from kneeling without UE assistance It Security Project Manager Goal (LTG) Pt to demonstrate ability to get off the floor without pulling himself up using his hands in order to show improvement in LE/quad strength LTG Duration 07/18/24 One Impairment Pt does not have an appropriate home exercise program Short Term Goal (STG) Pt to be independent and complaint with an appropriate HEP STG Duration 06/20/24 Assessment Summary Assessment Clinton into session with reports of no pain standing up from recliner with tape in place. Calf muscle stiffness limiting LE positioning for squats this session, HEP for squat with band due to no place to perform wall squats at home per patient. Physical Therapy Plan Frequency and Duration Frequency of Treatment 2x/Week Plan of Care Start Date 05/20/24 Plan of Care End Date 07/18/24 Next Visit Focus/Plan Next Note Type Treatment Note Next Visit Plan VMO/quad strengthening, patellar mobs
--- NOTE | 2025-02-26 12:29 | PT.OPDS ---
Current Diagnoses Patellofemoral disorders, right knee (06/17/24) Pain in right knee (06/17/24) Visit Care Team Role Provider Type BUFFY Parker Attending Provider Advanced Supervisor Drapery Hanging Family Provider Primary Care Provider Referring Provider Specialty: Family Practice Address: [address] [place] [address], [id number] Phone: Fax: Email: [email or web address] Visit Number Visit Number 5 Discharge Summary PT-OP-T Assessment and Plan Start: 05/20/24 15:31 Freq: Status: Active Protocol: Document 02/26/25 12:29 DCW (Rec: 02/26/25 12:29 DCW [id number]) Physical Therapy Assessment Assessment Summary Assessment Pt has not been seen in more than eight months, the plan of care has since . Pt will require a new referral in order to return in the future. Pt will be discharged from skilled therapy at this time. Physical Therapy Plan Discharge Physical Therapy Discharge Reasons No Longer Attending PT
== END 2025-03-04 10:57 | disposition home or self-care (01) ==
LOC: PHYS 11:30
PROVIDERS: Family Provider Nurse Practitioner Family; PCP Nurse Practitioner Family; Referring Provider Nurse Practitioner Family; Visit Provider Nurse Practitioner Family
DX: M25.561 Pain in right knee (principal); M22.2X1 Patellofemoral disorders, right knee
CPT/HCPCS: 97110; 97140; 97163; 97530

== ENCOUNTER → 2024-10-12 10:43 | Outpatient (CLI) | payer MEDICARE, SELFPAY ==
[2024-10-12 11:21] LABS: BUN Creatinine Ratio 20.5 (6-22); Blood Urea Nitrogen 30 mg/dL (9-20); Calcium 9.8 mg/dL (8.4-10.2); Carbon Dioxide 24 mmol/L (22-32); Chloride 106 mmol/L (98-107); Cholesterol 194 mg/dL (140-199); Estimated Glomerular Filt Rate 50 mL/min (>60); Glucose 89 mg/dL (70-99); HDL Cholesterol 73 mg/dL (40-60); HEMOLYSIS < 15 (0-50); LDL Cholesterol Calculated 102 mg/dL (<100); Potassium 4.7 mmol/L (3.4-5.1); Sodium 137 mmol/L (137-145); Triglycerides 94 mg/dL (35-150)
== END ==
PROVIDERS: PCP Nurse Practitioner Family; Referring Provider Nurse Practitioner Family; Visit Provider Nurse Practitioner Family
DX: E78.5 Hyperlipidemia, unspecified (principal)
CPT/HCPCS: 36415; 80048; 80061

== ENCOUNTER → 2024-10-26 07:10 | Outpatient (CLI) | payer MEDICARE, SELFPAY ==
--- NOTE | 2024-10-26 07:12 | DI.MRI.S_ITS ---
PROCEDURE: MR KNEE RT WO CON INDICATIONS: right knee joint line pain TECHNIQUE: Noncontrast sagittal PD fast spin echo and T2 fast spin echo with fat saturation, sagittal 3-D FLASH with fat saturation; coronal T1 spin echo and PD fast spin echo with fat saturation, and axial PD fast spin echo with fat saturation through the knee. COMPARISON: [facility], CR, XR KNEE RT 3V, 04/11/2024, 14:43. FINDINGS: Image quality: Diagnostic Menisci: Medial: Small horizontal tear of the periphery of the posterior horn, probably degenerative. Lateral: Internal degenerative signal abnormality Cruciate ligaments: Mild mucoid degeneration of the ACL. No full-thickness defect. Medial structures: MCL: Intact Pes anserine tendons: Intact Semimembranosus: Mild insertional tendinopathy Lateral structures: LCL: Mild proximal signal abnormality Biceps femoris: Intact IT band: Intact Popliteus tendon: Mild insertional tendinopathy Anterior structures: Extensor mechanism: Intact Fat pads: Qhqe-wl-lbsumhby prepatellar edema. Mild Hoffa's fat pad edema Medial retinaculum: Intact. Trochlea: Unremarkable morphology. Bone and joint: Bones: No acute fracture Cartilage: Focal fissuring with subchondral edema in the patellar median ridge and lateral facet. Mild cartilage heterogeneity seen elsewhere Joint space: Minimal effusion Denton's cyst: Small Denton's cyst Soft tissues: No significant vascular or other soft tissue pathology. IMPRESSION: Small likely degenerative signal abnormalities and horizontal tear of the menisci. Suspect mild LCL sprain versus proximal scarring. Mild ACL mucoid degeneration. No full-thickness defect. Mild tendinopathy of the semimembranosus and popliteus. Overall mild arthrosis, with more focal fissuring and subchondral edema in the patellar median ridge and lateral facet. Mild nonspecific Hoffa's fat pad edema and prepatellar soft tissue edema. Small Denton's cyst. Minimal joint effusion. Dictated by: Mike Carmichael M.D. on 10/28/2024 at 11:43 Approved by: Mike Carmichael M.D. on 10/28/2024 at 11:48
== END ==
LOC: MRI 07:10
PROVIDERS: PCP Nurse Practitioner Family; Referring Provider Nurse Practitioner Family; Visit Provider Orthopaedic Surgery
DX: S83.241A Other tear of medial meniscus, current injury, right knee, initial encounter (principal); M17.11 Unilateral primary osteoarthritis, right knee; M71.21 Synovial cyst of popliteal space [Baker], right knee; M25.561 Pain in right knee
CPT/HCPCS: 73721

== ENCOUNTER → 2024-10-28 15:00 | Outpatient (CLI) | payer MEDICARE, SELFPAY ==
--- NOTE | 2024-10-28 15:03 | DI.RAD.S_ITS ---
PROCEDURE: XR CERVICAL SPINE 2V OR 3V INDICATIONS: BACK PAIN TECHNIQUE: 3 view(s) of the cervical spine were acquired. COMPARISON: None. FINDINGS: Bones: No fractures or dislocations to the C7 level. Anterolisthesis of C5 on C6 measures 3 mm. The lateral masses of C1 appear intact on the odontoid view. No suspicious bony lesions. Soft tissues: No prevertebral soft tissue swelling. IMPRESSION: Anterolisthesis of C5 on C6 without evidence of acute osseous abnormality. Dictated by: Rex Neff M.D. on 10/29/2024 at 3:04 Approved by: Rex Neff M.D. on 10/29/2024 at 3:05
--- NOTE | 2024-10-28 15:03 | DI.RAD.S_ITS ---
PROCEDURE: XR THORACIC SPINE 2V INDICATIONS: BACK PAIN TECHNIQUE: 2 views of the thoracic spine were acquired. COMPARISON: None. FINDINGS: Bones: No fractures or dislocations. Mild multilevel degenerative change at consecutive levels of the thoracic spine includes disc height loss with adjacent endplate sclerosis and anterior osteophytosis. No suspicious bony lesions. 12 pairs of ribs are noted, and appear intact where visualized. Soft tissues: No paravertebral stripe thickening. IMPRESSION: Mild multilevel degenerative change at consecutive levels of the thoracic spine without evidence of acute bony abnormality. Dictated by: Rex Neff M.D. on 10/29/2024 at 3:16 Approved by: Rex Neff M.D. on 10/29/2024 at 3:21
--- NOTE | 2024-10-28 15:03 | DI.RAD.S_ITS ---
PROCEDURE: XR LUMBAR SPINE 2-3V INDICATIONS: BACK APIN TECHNIQUE: 2 views of the lumbar spine were acquired. COMPARISON: None. FINDINGS: Bones: 5 hvi-glg-fsigxjd vertebrae are present. Partial lumbarization of S1. There is normal bony alignment. No vertebral body compression fractures. No suspicious bony lesions. Soft tissues: Overlying bowel gas pattern is normal. No suspicious soft tissue calcifications. IMPRESSION: No acute bony abnormality. Dictated by: Rex Neff M.D. on 10/29/2024 at 3:06 Approved by: Rex Neff M.D. on 10/29/2024 at 3:16
== END ==
LOC: RAD 15:01
PROVIDERS: PCP Nurse Practitioner Family
DX: M43.12 Spondylolisthesis, cervical region (principal); M47.814 Spondylosis without myelopathy or radiculopathy, thoracic region; M54.50 Low back pain, unspecified
CPT/HCPCS: 72040; 72070; 72100

== ENCOUNTER → 2025-04-09 14:55 | Outpatient (CLI) | payer MEDICARE, SELFPAY | PROVIDERS: PCP Nurse Practitioner Family; Visit Provider Nurse Practitioner Family | DX: R31.9 Hematuria, unspecified (principal) | CPT/HCPCS: 87077; 87086; 87186 ==